=== PATIENT | male | born 1965 | race Caucasian/White ===

== ENCOUNTER 2019-04-22 20:05 | Outpatient (REF) | payer SELFPAY ==
[2019-04-22 20:29] LABS: Anion Gap 19.7 (5-19); Blood Urea Nitrogen 15 mg/dL (6-20); Calcium 10.3 mg/dL (8.5-10.5); Carbon Dioxide 24 mmol/L (22-29); Chloride 94 mmol/L (98-107); Glomerular Filtration Rate 69.8 mL/min (90-130); Glucose 105 mg/dL (65-115); Osmolality Calculated 273 mOsm/kg (285-295); Potassium 4.7 mmol/L (3.5-5.1); Sodium 133 mmol/L (136-145)
[2019-04-22 20:33] LABS: Estmated Average Glucose 131; Hemoglobin A1C 6.2 % (4.0-6.0)
== END 2019-04-22 20:06 | disposition home or self-care (01) ==
LOC: LAB 20:05
PROVIDERS: Family Provider Family Medicine; Visit Provider General Practice
DX: Z01.89 Encounter for other specified special examinations (principal)
CPT/HCPCS: 80048; 83036

== ENCOUNTER 2019-08-19 16:27 | Outpatient (CLI) | payer SELFPAY ==
[2019-08-19 17:59] LABS: Alanine Aminotransferase 20 U/L (0-41); Albumin Level 4.5 g/dL (3.5-5.2); Alkaline Phosphatase 53 IU/L (40-130); Anion Gap 19.5 (5-19); Aspartate Amino Transferase 26 U/L (0-40); Blood Urea Nitrogen 16 mg/dL (6-20); Calcium 9.4 mg/dL (8.5-10.5); Carbon Dioxide 23 mmol/L (22-29); Chloride 95 mmol/L (98-107); Cholesterol 116 mg/dL (0-200); Globulin 3.2 g/dL (1.3-4.6); Glomerular Filtration Rate 57.3 mL/min (90-130); Glucose 123 mg/dL (65-115); HDL Cholesterol 29 mg/dL (60-100); LDL Cholesterol Calculated 37 mg/dL (50-129); LDL HDL Ratio 1.28 RATIO (0.00-3.22); Osmolality Calculated 274 mOsm/kg (285-295); Potassium 4.5 mmol/L (3.5-5.1); Sodium 133 mmol/L (136-145); Total Bilirubin 0.2 mg/dL (0.15-1.2); Total Protein 7.7 g/dL (6.6-8.7); Triglycerides 249 mg/dL (0-150)
[2019-08-19 19:04] LABS: Estmated Average Glucose 131; Hemoglobin A1C 6.2 % (4.0-6.0)
== END 2019-08-19 16:28 | disposition home or self-care (01) ==
LOC: LAB 16:28
PROVIDERS: Visit Provider General Practice
DX: E11.9 Type 2 diabetes mellitus without complications (principal)
CPT/HCPCS: 80053; 80061; 83036

== ENCOUNTER 2020-08-31 18:59 | Outpatient (CLI) | payer SELFPAY ==
[2020-08-31 20:20] LABS: Estmated Average Glucose 117; Hemoglobin A1C 5.7 % (4.0-6.0)
[2020-08-31 20:22] LABS: Alanine Aminotransferase 15 U/L (0-41); Albumin Level 4.7 g/dL (3.5-5.2); Alkaline Phosphatase 71 IU/L (40-130); Anion Gap 18.8 (5-19); Aspartate Amino Transferase 21 U/L (0-40); Blood Urea Nitrogen 18 mg/dL (6-20); Calcium 9.5 mg/dL (8.5-10.5); Carbon Dioxide 24 mmol/L (22-29); Chloride 97 mmol/L (98-107); Chol HDL Ratio 2.83 mg/dL (1.0-5.00); Cholesterol 102 mg/dL (0-200); Globulin 2.5 g/dL (1.3-4.6); Glomerular Filtration Rate 69.2 mL/min (90-130); Glucose 91 mg/dL (65-115); HDL Cholesterol 36 mg/dL (60-100); LDL Cholesterol Calculated 44 mg/dL (50-129); LDL HDL Ratio 1.22 RATIO (0.00-3.22); Osmolality Calculated 281 mOsm/kg (285-295); Potassium 4.8 mmol/L (3.5-5.1); Sodium 135 mmol/L (136-145); Total Bilirubin 0.2 mg/dL (0.15-1.2); Total Protein 7.2 g/dL (6.6-8.7); Triglycerides 109 mg/dL (0-150)
== END 2020-08-31 19:00 | disposition home or self-care (01) ==
LOC: LAB 19:00
PROVIDERS: PCP General Practice; Visit Provider General Practice
DX: E11.9 Type 2 diabetes mellitus without complications (principal)
CPT/HCPCS: 80053; 80061; 83036

== ENCOUNTER 2020-12-21 18:58 | Outpatient (CLI) | payer SELFPAY ==
[2020-12-21 19:56] LABS: Alanine Aminotransferase 17 U/L (0-41); Albumin Level 4.6 g/dL (3.5-5.2); Alkaline Phosphatase 68 IU/L (40-130); Anion Gap 14.4 (5-19); Aspartate Amino Transferase 22 U/L (0-40); Blood Urea Nitrogen 15 mg/dL (6-20); Calcium 9.5 mg/dL (8.5-10.5); Carbon Dioxide 27 mmol/L (22-29); Chloride 96 mmol/L (98-107); Globulin 3.2 g/dL (1.3-4.6); Glomerular Filtration Rate 87.3 mL/min (90-130); Glucose 130 mg/dL (65-115); Osmolality Calculated 279 mOsm/kg (285-295); Potassium 4.4 mmol/L (3.5-5.1); Sodium 133 mmol/L (136-145); Total Bilirubin 0.2 mg/dL (0.15-1.2); Total Protein 7.8 g/dL (6.6-8.7)
[2020-12-21 22:13] LABS: Estmated Average Glucose 117; Hemoglobin A1C 5.7 % (4.0-6.0)
== END 2020-12-21 18:59 | disposition home or self-care (01) ==
LOC: LAB 18:59
PROVIDERS: PCP General Practice; Visit Provider General Practice
DX: E11.9 Type 2 diabetes mellitus without complications (principal)
CPT/HCPCS: 80053; 83036

== ENCOUNTER 2021-08-16 13:59 | Emergency (ER) | payer MEDICAID, SELFPAY ==
[2021-08-16 14:12] VITALS: BP 153/78; PULSE 84; RESP 18; TEMP 37.6; O2SAT 98; BMI 33.4
--- NOTE | 2021-08-16 14:33 | XR_ITS ---
WS: [id number] Exam: XR toe LT min 2V [id number] Date/Time of Exam: 08/16/2021 2:40 PM Reason For Exam: trauma/laceration; 5th toe There is a comminuted fracture of the middle phalanx of the fifth toe with soft tissue edema. The fra cture is displaced and disrupts the PIP joint. No other fractures are seen. No soft tissue foreign jr dies. XR/XR toe LT min 2V [id number] IMPRESSION: 1. Displaced fracture involving the middle phalanx of the fifth toe with soft t issue swelling. Marked soft tissue edema over the forefoot.
--- NOTE | 2021-08-16 14:37 | W.ED.LOWEXIN ---
HPI - Extremity Injury (Lower) General: Chief Complaint: Extremity Injury, Lower Stated Complaint: Left Cut on toe Time Seen by Provider: 08/16/21 14:20 Source: patient Mode of arrival: ambulatory Limitations: no limitations History of Present Illness: Patient is a 56-year-old male who presents to ED today for evaluation of a laceration to his left fifth toe. Patient states he lacerated the toe yesterday morning after stepping on something in his home. Patient states that he is stubborn and delayed medical evaluation. He states he was seen at a walk-in clinic today and referred to the emergency department. 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 He has not noticed any bleeding from the wound. His last tetanus was at least 6 years ago. MD complaint: foot injury (L 5th toe) Onset (ago): day(s) (yesterday morning ) Place: home Context: other (laceration) Associated symptoms: Reports no associated symptoms Other symptoms: none Treatments prior to arrival: bandage Review of Systems Const: Denies: fever(s), chills or body aches Musc: Reports: extremity pain (L 5th toe); Denies: extremity swelling or joint redness Skin/Breast: Reports: other (laceration to L 5th toe) Neuro: Reports: sensory changes (chronic bilateral LE neuropathy) Physical Exam Const: COMMON NORMALS: no acute distress, average body habitus, patient oriented x3, no limitations, healthy appearing, alert and well nourished Extremity: GENERAL: Yes normal exam except as noted LEFT LOWER EXTREMITY: Yes foot & digits OTHER: pt has a laceration to the plantar base of his L 5th toe; wound is contaminated with dirt/grass; wound is clearly >24 hours old; no bleeding; I do not visualize any bone or tendon involvement; he has chronic sensory changes to foot secondary to neuropathy Neuro: COMMON NORMALS: patient oriented x3 SENSORIUM/ORIENTATION: Yes alert Skin: NARRATIVE SKIN EXAM: see extremity assessment above for pertinent skin findings Course Consultations: Consultation #1: Dr. Carson-recommends leaving open, abx, betadine wet-to-dry dressings, follow-up with wound care and he will later see in office Vital Signs: Vital signs: Vital Signs Temperature 99.6 F 08/16/21 14:12 Pulse Rate 84 08/16/21 14:12 Respiratory Rate 18 08/16/21 14:12 Blood Pressure 153/78 08/16/21 14:12 Pulse Oximetry 98 08/16/21 14:12 MDM - Extremity Injury (Lower) Medical Decision Making Patient is a 56-year-old diabetic male here for an open fracture to his left fifth toe that is now 30+ hours old. Wound is grossly contaminated with dirt and grass. It was soaked extensively with Betadine and scrubbed. XR shows a comminuted displaced fracture of his middle phalanx. Closure is contraindicated due to the length of time from initial injury. I spoke to Dr. Carson our automotive consultant. Unfortunately he is not on-call but will be back in office mid next week. He stated if his foot is not acutely infected/cellulitic appearing and there is no need for an emergent admit/transfer. He did recommend leaving wound open and having the patient do betadine wet-to-dry dressings. Placing patient on clindamycin/ciprofloxacin for pseudomonas coverage and have patient follow-up with wound care in the meantime. Case management was able to get patient a wound care appointment with Dr. Mendez on Friday. Patient was instructed on return to ED precautions over the weekend. He will be placed in a hard soled shoe and will follow up with later next week. Lab Data Radiology Impressions Toe X-Ray 08/16/21 14:33 IMPRESSION: 1. Displaced fracture involving the middle phalanx of the fifth toe with soft tissue swelling. Marked soft tissue edema over the forefoot. Discharge Plan Discharge Patient Disposition: Home Clinical Impression: Open fracture of phalanx of left fifth toe Qualifiers: Encounter type: initial encounter Qualified Code(s): S92.502B - Displaced unspecified fracture of left lesser toe(s), initial encounter for open fracture Condition: Stable Prescriptions: New clindamycin HCl 300 mg capsule 300 mg PO Q6H 7 Days Qty: 28 0RF Cipro 500 mg tablet 500 mg PO Q12H Qty: 14 0RF Discharge Orders: Discharge ED (Routine); Ordered 08/16/21 Ordered By: Leonie Garay Referrals: Rhett White MD [Primary Care Provider] - Patient Instructions: Fractures - Phalanx (Toe), Toe Fracture (ED) Activity Restrictions/Additional Instructions: As we discussed you have been given instructions on Betadine wet-to-dry dressing changes. Please keep the foot dry and avoid showering/bathing the extremity. You need to begin antibiotics immediately. Case management should contact you shortly to set you up with a podiatry appointment with Dr. Carson. In the meantime we will have you follow-up with the wound care clinic and you have an appointment with them scheduled for FridayAUGUST 20 AT 2:[address] Mendez. We are leaving your wound open due to the fact that it is now over 30 hours old. You need to return to the emergency department for redness to the foot, extreme warmth/heat, red streaking up your leg, fevers, or any other concerns you may have. Coding Level of Care Code ED Tab Card Press Operator for Rhina Fwcarin Exam Expanded Problem Focused
[2021-08-16] MEDS: ceFAZolin 1,000 mg SDV 1000 MG IM (15:00)
[2021-08-16] MEDS: tetanus-diphtheria tox (adult) 0.5 mL SDV IM (15:06)
--- NOTE | 2021-08-17 11:13 | DCPLANNER ---
Addendum entered by Esther Mayo 09/21/21 16:47: patient is following up with wound care and not ortho. Addendum entered by Esther Mayo 08/26/21 05:40: Patient had an appointment scheduled for 08.20.[address] Mendez at [facility] - patient did attend appointment. Original Note: manager of project management was asked to schedule a follow up appointment for patient with [facility]ound [facility]. manager of project management called [facility], spoke with Kimberlyn, gave clinic patients information, a follow up appointment was scheduled for Friday, August 20, 2021 2:[address] Mendez. manager of project management informed ER physician of the scheduled appointment. The appointment information was put on patients discharge information. manager of project management had message to schedule a follow up appointment for patient with ortho. manager of project management sent patients information to the front office staff at ortho. Patients information will be printed and reviewed. Clinic will call patient with appointment information.
== END 2021-08-16 17:03 | disposition home or self-care (01) ==
PROVIDERS: Emergency Provider Physician Assistant; PCP General Practice
DX: S92.522A Displaced fracture of middle phalanx of left lesser toe(s), initial encounter for closed fracture (principal); S91.115A Laceration without foreign body of left lesser toe(s) without damage to nail, initial encounter; W26.9XXA Contact with unspecified sharp object(s), initial encounter; Y92.009 Unspecified place in unspecified non-institutional (private) residence as the place of occurrence of the external cause; Z23 Encounter for immunization
CPT/HCPCS: 73660; 90471; 90714; 96372; 99283; J0690

== ENCOUNTER → 2021-08-20 13:33 | Outpatient (BNVA) | payer MEDICAID, SELFPAY | PROVIDERS: PCP General Practice; Visit Provider Thoracic Surgery (Cardiothoracic Vascular Surgery) | DX: L97.522 Non-pressure chronic ulcer of other part of left foot with fat layer exposed (principal) | CPT/HCPCS: 11042; 99213; A6210 ==

== ENCOUNTER 2021-08-27 14:00 | Emergency (ER) | payer MEDICAID, SELFPAY ==
[2021-08-27] VITALS (8 sets, daily range): BP systolic 120–148; BP diastolic 73–84; PULSE 69–78; RESP 16; TEMP 36.4–36.7; O2SAT 95–98; BMI 28.5; BMI 32.6
--- NOTE | 2021-08-27 14:53 | XR_ITS ---
WS: [id number] Exam: XR foot LT min 3V* [id number] Date/Time of Exam: 08/27/2021 2:53 PM Reason For Exam: Fifth toe fracture with wound Comparison 08/16/2021. Again noted is a comminuted fracture of the middle phalanx of the fifth toe with soft tissue edema. N o change noted since prior study. No soft tissue foreign bodies are noted. No other fractures. Soft t issue swelling over the forefoot. Vascular calcifications about the foot and ankle. XR/XR foot LT min 3V* [id number] IMPRESSION: 1. Comminuted fracture of the middle phalanx of the fifth toe with soft tissue edema. Soft tissue edema seen about the forefoot. No significant change.
--- NOTE | 2021-08-27 14:54 | ED_ITS ---
HPI - Extremity Problem General: Chief complaint: Extremity Problem,Nontraumatic Stated complaint: possible infected left pinky toe Time Seen by Provider: 08/27/21 14:12 History of Present Illness: Patient is a 56-year-old male who comes to the ED with left foot infection. Patient was seen here in the ED back on August 16 after an injury to his fifth toe. He was diagnosed with an open fracture of his left fifth toe and was also referred to wound care for follow-up. He has been to wound care once and was scheduled to have another appointment with them today but he decided to come here instead to get evaluated. He noticed his left foot had gotten swollen and red within the last 24 hours. He has diabetic peripheral neuropathy and endorses just some mild soreness to the left foot. Patient says he just finished taking his previously prescribed antibiotics for open fracture injury approximately 4 to 5 days ago. Associated symptoms: Deny chest pain, fever(s) or rash Review of Systems Const: Denies: fever(s), chills or fatigue Eyes: Denies: change in vision or eye discomfort ENMT: Denies: throat pain, odynophagia, nasal discharge or nasal congestion Card: Denies: chest pain, palpitations, edema, swelling of feet/ankles, dyspnea on exertion or orthopnea Resp: Denies: dyspnea, productive cough or non-productive cough GI: Denies: abdominal pain, nausea, vomiting, diarrhea, constipation or hematochezia : Denies: flank pain, difficulty urinating, dysuria or hematuria Musc: Denies: neck pain, back pain or extremity swelling Skin/Breast: Denies: rash or new lesions Neuro: Denies: headache(s), numbness in extremities or weakness in extremities Physical Exam Const: COMMON NORMALS: patient oriented x3 HENMT: COMMON NORMALS: normocephalic HEAD & SCALP: normocephalic MOUTH: Normal oral and palatal mucosa present THROAT: posterior oropharynx normal and uvula midline Neck/C-Spine: COMMON NORMALS: supple GENERAL: Yes normal visual inspection Resp: COMMON NORMALS: normal respiratory effort, No retractions, No use of acc essory muscles and clear to auscultation bilaterally AUSCULTATION: clear to auscultation bilaterally Cardio: COMMON NORMALS: regular rate, regular rhythm, S1 normal heart sound present, S2 normal heart sound present, No gallops present (Cardio), No clicks present (Cardio), No murmurs present (Cardio) and Peripheral pulses 2+ throughout RATE: regular rate RHYTHM: regular rhythm HEART SOUNDS: S1 normal heart sound present and S2 normal heart sound present PERIPHERAL PULSES: Peripheral pulses 2+ throughout GI: COMMON NORMALS: Normal to inspection, nondistended, normoactive bowel sounds present, Soft to palpation, non-tender and no masses PALPATION: Yes Soft to palpation : COMMON NORMALS: Yes no CVA tenderness BLADDER/KIDNEY EXAM: Yes no CVA tenderness Back/Pelvis: COMMON NORMALS: no CVA tenderness Extremity: NARRATIVE EXTREMITY EXAM: Left foot?erythema, warmth and swelling noted that is generalized throughout foot. No red streaking up left leg. Patient has bandage covering left first digit wound. Findings suggestive of some developing cellulitis Neuro: COMMON NORMALS: patient oriented x3 and moves all extremities Course Vital Signs: Vital signs: Vital Signs Temperature 97.5 F L 08/27/21 14:15 Pulse Rate 73 08/27/21 18:39 Respiratory Rate 16 08/27/21 14:15 Blood Pressure 135/79 08/27/21 18:39 Pulse Oximetry 97 08/27/21 18:39 MDM - Extremity (Nontraumatic) Medical Decision Making Patient is a 56-year-old male who comes to the ED with left foot infection. Patient was seen here in the ED back on August 16 after an injury to his fifth toe. He was diagnosed with an open fracture of his left fifth toe and was also ref erred to wound care for follow-up. He has been to wound care once and was scheduled to have another appointment with them today but he decided to come here instead to get evaluated. He noticed his left foot had gotten swollen and red within the last 24 hours. He has diabetic peripheral neuropathy and endorses just some mild soreness to the left foot. Vitals are stable and exam shows developing cellulitis on the left foot. X-ray showed no change from comminuted fracture of the middle phalanx of fifth toe as seen on previous x-ray back on August 16. White blood cell count 11, hemoglobin 10.4 and sodium was 127. CRP 11.9. The rest of labs were unremarkable. Patient was given 1 L of IV fluids and IV Rocephin here in the ED. He was diagnosed with cellulitis and discharged home without prescription for Bactrim. He was told to follow-up with wound care clinic at his next appointment. Return to ED precautions given. Patient understood and agreed with plan. Lab Data I reviewed the patient's lab results. : 08/27/21 15:25 08/27/21 16:12 Radiology Impressions Foot X-Ray 08/27/21 14:53 IMPRESSION: 1. Comminuted fracture of the middle phalanx of the fifth toe with soft tissue edema. Soft tissue edema seen about the forefoot. No significant change. Laboratory Results WBC 11.0 10^3/uL (4.0-10.0) H 08/27/21 15:25 RBC 3.22 10^6/uL (4.1-5.3) L 08/27/21 15:25 Hgb 10.4 g/dL (11.7-16.6) L 08/27/21 15:25 Hct 30.1 % (42.0-52.0) L 08/27/21 15:25 MCV 93.5 fl (80-94) 08/27/21 15:25 MCH 32.3 pg (28.0-34.0) 08/27/21 15:25 MCHC 34.6 g/dL (30.0-36.0) 08/27/21 15:25 RDW 17.9 % (12.1-15.1) H 08/27/21 15:25 Plt Count 423 10^3/cmm (130-400) H 08/27/21 15:25 MPV 8.6 fL (7.4-10.4) 08/27/21 15:25 Neut % (Auto) 66.2 % 08/27/21 15:25 Lymph % (Auto) 18.9 % 08/27/21 15:25 [place] % (Auto) 10.6 % 08/27/21 15:25 Eos % (Auto) 3.3 % 08/27/21 15:25 Baso % (Auto) 0.5 % 08/27/21 15:25 Neut # (Auto) 7.30 10^3/uL (1.8-7.7) 08/27/21 15:25 Lymph # (Auto) 2.1 10^3/uL (0.8-4.8) 08/27/21 15:25 Dade # (Auto) 1.2 10^3/uL (0.2-0.9) H 08/27/21 15:25 Eos # (Auto) 0.4 10^3/uL (0.0-0.8) 08/27/21 15:25 Baso # (Auto) 0.1 10^3/uL (0.0-0.1) 08/27/21 15:25 Nucleated RBC % (auto) 0 % 08/27/21 15:25 Nucleated RBCs # 0.0 /100WBC 08/27/21 15:25 Sodium 127 mmol/L (136-145) L 08/27/21 16:12 Potassium 4.0 mmol/L (3.5-5.1) 08/27/21 16:12 Chloride 93 mmol/L (98-107) L 08/27/21 16:12 Carbon Dioxide 23 mmol/L (22-29) 08/27/21 16:12 Anion Gap 15.0 (5-19) 08/27/21 16:12 BUN 11 mg/dL (6-20) 08/27/21 16:12 Creatinine 0.9 mg/dL (0.7-1.2) 08/27/21 16:12 GFR Calculation 87.0 mL/min (90-130) L 08/27/21 16:12 Glucose 105 mg/dL (65-115) 08/27/21 16:12 Calculated Osmolality 264 mOsm/kg (285-295) L 08/27/21 16:12 Calcium 8.8 mg/dL (8.5-10.5) 08/27/21 16:12 Total Bilirubin 0.2 mg/dL (0.15-1.2) 08/27/21 16:12 AST 30 U/L (0-40) 08/27/21 16:12 ALT 13 U/L (0-41) 08/27/21 16:12 Alkaline Phosphatase 80 IU/L (40-130) 08/27/21 16:12 C-Reactive Protein 11.9 mg/L (0.0-4.9) H 08/27/21 16:12 Total Protein 7.2 g/dL (6.6-8.7) 08/27/21 16:12 Albumin 3.9 g/dL (3.5-5.2) 08/27/21 16:12 Globulin 3.3 g/dL (1.3-4.6) 08/27/21 16:12 Discharge Plan Discharge Patient Disposition: Home Clinical Impression: Hyponatremia Cellulitis Qualifiers: Site of cellulitis: extremity Site of cellulitis of extremity: lower extremity Laterality: left Qualified Code(s): L03.116 - Cellulitis of left lower limb Anemia Qualifiers: Anemia type: unspecified type Qualified Code(s): D64.9 - Anemia, unspecified Condition: Stable Prescriptions: New Bactrim DS 800-160 mg tablet 1 tab PO BID 10 Days Qty: 20 0RF No Action Men's Multi-Vitamin Tablet 1 tab PO DAILY 0RF metformin 500 mg Tablet 500 mg PO BID 0RF Lantus U-100 Insulin 100 unit/mL Solution 30 unit SUBCUT QPM 0RF Aspir-81 81 mg Tablet,Delayed Release (Dr/Ec) 81 mg PO DAILY 0RF simvastatin 40 mg Tablet 40 mg PO QPM 0RF amlodipine 10 mg Tablet 10 mg PO DAILY 0RF iron 325 mg (65 mg iron) Tablet 325 mg PO DAILY 0RF Vitamin C 100 mg Tablet 100 mg PO DAILY 0RF gabapentin 300 mg Capsule 300 mg PO TID 0RF lisinopril 40 mg Tablet 40 mg PO DAILY 0RF [id number] [[id number] (with antiox)] 500-500-66.7 mg Tablet 1 tab PO BID 0RF Discharge Orders: Discharge ED (Routine); Ordered 08/27/21 Ordered By: Rhett Sawyer Discharge Diet: Regular Discharge Activity: Resume usual activity Patient Instructions: Cellulitis (ED), Hyponatremia (ED) Activity Restrictions/Additional Instructions: Follow-up with PCP in the next 3 to 5 days for reevaluation and to have your sodium levels rechecked.. Follow-up with wound care clinic at your next scheduled appointment for further evaluation. Take medications as prescribed. Return to the ER or your medical provider if condition worsens. Please read and understand discharge instructions. Thank you for choosing [facility] for your healthcare needs today. Please realize this is an emergency room and that we are providing you with a medical screening exam and this may not be complete and all inclusive of all the testing and or work up that you may need to determine your ailment or severity of your illness. It is very important that you follow up as instructed or that you return to the Emergency Department should you have concerns or if your condition changes or worsens in any way. Coding Level of Care Code ED Layout Operator for Rhina Loera Exam Comprehensive
[2021-08-27 15:37] LABS: Basophils # 0.1 10^3/uL (0.0-0.1); Basophils % 0.5 %; Eosinophils # 0.4 10^3/uL (0.0-0.8); Eosinophils % 3.3 %; Hematocrit 30.1 % (42.0-52.0); Hemoglobin 10.4 g/dL (11.7-16.6); Lymphocytes # 2.1 10^3/uL (0.8-4.8); Lymphocytes % 18.9 %; Mean Corpuscular HGB Conc 34.6 g/dL (30.0-36.0); Mean Corpuscular Hemoglobin 32.3 pg (28.0-34.0); Mean Corpuscular Volume 93.5 fl (80-94); Mean Platelet Volume 8.6 fL (7.4-10.4); Monocytes # 1.2 10^3/uL (0.2-0.9); Monocytes % 10.6 %; Neutrophils % 66.2 %; Nucleated Red Blood Cells % 0 %; Platelet Count 423 10^3/cmm (130-400); Red Blood Count 3.22 10^6/uL (4.1-5.3); Red Cell Distribution Width 17.9 % (12.1-15.1)
[2021-08-27 16:58] LABS: Alanine Aminotransferase 13 U/L (0-41); Albumin Level 3.9 g/dL (3.5-5.2); Alkaline Phosphatase 80 IU/L (40-130); Aspartate Amino Transferase 30 U/L (0-40); Blood Urea Nitrogen 11 mg/dL (6-20); C Reactive Protein 11.9 mg/L (0.0-4.9); Calcium 8.8 mg/dL (8.5-10.5); Carbon Dioxide 23 mmol/L (22-29); Chloride 93 mmol/L (98-107); Globulin 3.3 g/dL (1.3-4.6); Glucose 105 mg/dL (65-115); Osmolality Calculated 264 mOsm/kg (285-295); Sodium 127 mmol/L (136-145); Total Bilirubin 0.2 mg/dL (0.15-1.2); Total Protein 7.2 g/dL (6.6-8.7)
[2021-08-27] MEDS: cefTRIAXone 2,000 MG in sodium chloride 0.9% (plus) 50 ML 100 MG IV (17:11)
[2021-08-27] MEDS: sodium chloride 0.9% 1,000 ML 999 ML IV (17:11)
== END 2021-08-27 18:40 | disposition home or self-care (01) ==
PROVIDERS: Emergency Provider Physician Assistant
DX: L03.116 Cellulitis of left lower limb (principal); D64.9 Anemia, unspecified; E87.1 Hypo-osmolality and hyponatremia; Z79.82 Long term (current) use of aspirin; Z79.4 Long term (current) use of insulin
CPT/HCPCS: 73630; 80053; 85025; 86140; 96365; 99284; J0696; J7030

== ENCOUNTER → 2021-09-03 15:09 | Outpatient (BNVA) | payer MEDICAID, SELFPAY | PROVIDERS: Visit Provider Thoracic Surgery (Cardiothoracic Vascular Surgery) | DX: L97.522 Non-pressure chronic ulcer of other part of left foot with fat layer exposed (principal) | CPT/HCPCS: 97597 ==

== ENCOUNTER → 2021-09-17 13:37 | Outpatient (BNVA) | payer MEDICAID, SELFPAY | PROVIDERS: Visit Provider Thoracic Surgery (Cardiothoracic Vascular Surgery) | DX: I96 Gangrene, not elsewhere classified (principal); L97.522 Non-pressure chronic ulcer of other part of left foot with fat layer exposed | CPT/HCPCS: 11044; 87070; 87176; 87205 ==

== ENCOUNTER → 2021-09-24 13:37 | Outpatient (BNVA) | payer MEDICAID, SELFPAY | PROVIDERS: Visit Provider Thoracic Surgery (Cardiothoracic Vascular Surgery) | DX: L97.522 Non-pressure chronic ulcer of other part of left foot with fat layer exposed (principal); I96 Gangrene, not elsewhere classified | CPT/HCPCS: 97597 ==

== ENCOUNTER → 2021-10-08 13:36 | Outpatient (BNVA) | payer MEDICAID, SELFPAY | PROVIDERS: Visit Provider Nurse Practitioner Family | DX: Z09 Encounter for follow-up examination after completed treatment for conditions other than malignant neoplasm (principal) | CPT/HCPCS: 99212 ==